=== PATIENT | female | born 1995 | race Two or more races ===

== ENCOUNTER 2022-10-27 13:12 | Emergency (ER) | payer SELFPAY ==
[~2022-10-27] VITALS: Ht 157.5 cm; Wt 44.0 kg
[2022-10-27 13:22] VITALS: BP 113/74; TEMP 98.8
[2022-10-27 13:54] VITALS: O2SAT 99
== END 2022-10-27 13:54 | disposition home or self-care (01) ==
LOC: ER 13:20
DX: B34.9 Viral infection, unspecified (principal)